=== PATIENT | male | born 1980 | race Caucasian/White ===

== ENCOUNTER 2017-01-16 23:22 | Emergency (ER) | payer SELFPAY ==
[~2017-01-16] VITALS: Ht 177.8 cm; Wt 95.4 kg
[~2017-01-16 23:22] MED LIST: OXYC1TAB3 PO; PENI-82 PO
[2017-01-16 23:34] VITALS: TEMP 36.8; Ht 177.8 cm; Wt 95.4 kg
[2017-01-16] MEDS ORDERED: AMOX500C3 PO (23:43)
[2017-01-17] MEDS ORDERED: OXYCODONE/ACETAMINOPHEN 5-325 TAB PO STA (00:06)
--- NOTE | 2017-01-17 00:06 | EMERGENCY ROOM VISIT NOTE ---
History Report prepared by Bianca: Kayla Oliveira Under the Supervision of: Dr. Mary Lou Dos Santos D.O. First contact with patient: 23:51 Chief Complaint: DENTAL PAIN Stated Complaint: ABSCESS ON LEFT CHEEK History of Present Illness The patient is a 36 year old male who presents to the Emergency Room with complaints of persistent dental pain that began one day ago. He currently rates his discomfort as a 9/10 in severity. The patient states that he has a history of a previous tooth abscess, but states that he hasn't had one in awhile. He states that he does see a dentist. The patient associates edema to the area with his symptoms today. He denies any fever, chills, sore throat, or cough. The patient denies any history of diabetes. He states that he has taken Advil at home for his discomfort without relief of his symptoms. Source of History: patient Onset: one day ago Position: teeth Symptom Intensity: 9/10 Timing: other (persistent) Associated Symptoms: No chills, No cough, No fevers, No sorethroat Note: Associated Symptoms: edema to mouth Review of Systems See HPI for pertinent positives & negatives. A total of 10 systems reviewed and were otherwise negative. Past Medical & Surgical Medical Problems: (1) Abscessed tooth Family History Cancer Social History Smoking Status: Current Every Day Smoker Alcohol Use: occasionally Marital Status: single Housing Status: lives with significant other Occupation Status: employed Current/Historical Medications Scheduled Amoxicillin (Amoxil), 500 MG PO BID Penicillin V Potassium (Veetids), 500 MG PO TID Scheduled PRN Oxycodone/Acetaminophen 5MG/325MG (Percocet 5MG/325MG), 1-2 TABLETS PO Q4H PRN for Pain Allergies Coded Allergies: No Known Allergies (Unverified , 01/16/17) Physical Exam Vital Signs Date Time Temp Pulse Resp B/P Pulse Ox O2 Delivery O2 Flow Rate FiO2 01/17/17 00:16 66 18 122/75 97 Room Air 01/16/17 23:34 36.8 68 16 124/82 97 Room Air Physical Exam HEENT: Head - normocephalic and atraumatic Pupils are equal, round, and reactive to light. Extraocular eye muscles are intact, and sclera are anicteric. Nose - moist nasal mucosa without discharge. Mouth - moist buccal mucosa. Oropharynx has significant gingival edema and erythema in left lower mouth, with abscess formation along the alveolar ridge and submental region on the left. and there is no tonsillar exudate or edema noted. Neck: Mild anterior cervical lymphadenopathy. Heart: Regular rate and rhythm. There is a normal S1 and S2 with no murmurs, clicks, or gallops appreciated. Lungs: Clear to auscultation bilaterally with no wheezes, rales, or rhonchi. Abdomen: Soft, completely nontender, nondistended, with good bowel sounds. There are no palpable pulsatile masses or hepatosplenomegaly. There is no guarding, rigidity, or rebound noted. Extremities: No evidence of cyanosis, clubbing, or edema. There are easily palpable peripheral pulses. Skin: warm and dry with good turgor and no rashes. Medical Decision & Procedures Medications Administered Medications (Trade) Dose Ordered Sig/Apollo Route Start Time Stop Time Status Last Admin Dose Admin Oxycodone/ Acetaminophen (Percocet 5-325mg Tab) 2 tab NOW STAT PO 01/17/17 00:06 01/17/17 00:08 DC 01/17/17 00:16 2 TAB Penicillin V Potassium (Veetids Tab) 500 mg NOW ONCE PO 01/17/17 00:15 01/17/17 00:16 DC 01/17/17 00:15 500 MG Procedure The patient was treated with Oxycodone/Acetaminophen 2 tab PO, Veetids Tab 500 mg PO. ED Course 2355: Past medical records reviewed. The patient was evaluated in room A12B. A complete history and physical exam was performed. I discussed all the exam findings with him and I discussed the treatment plan. He verbalized complete understanding and agreement. He is ready to go home once he receives his antibiotics. 0006: Ordered Oxycodone/Acetaminophen 2 tab PO. 0015: Ordered Veetids Tab 500 mg PO. Medical Decision The patient is a 36 year old male who presents to the ED with dental pain. Differential diagnosis includes dental abscess, dental fracture, Rc's angina On physical exam, the patient has an obvious left-sided lower dental abscess. There is no evidence of Rc angina. There is simply anterior cervical lymphadenopathy and abscess formation in the left lower mouth. The patient does have a dentist and will follow-up with him on Wednesday. Patient was given a prescription for penicillin. He was told to return to the emergency department if he developed more systemic symptoms. [place] Drug Monitoring Program Search Results: patient reviewed within database, no issues identified Impression Primary Impression: Dental abscess Scribe Attestation The scribe's documentation has been prepared under my direction and personally reviewed by me in its entirety. I confirm that the note above accurately reflects all work, treatment, procedures, and medical decision making performed by me. Departure Information Dispostion Home / Self-Care Prescriptions Oxycodone/Acetaminophen 5MG/325MG (PERCOCET 5MG/325MG) Tab 1-2 TABLETS PO Q4H Y for Pain, #20 TAB PAIN Prov: Mary Lou Dos aSntos D.O. 01/17/17 Penicillin V Potassium (Veetids) 500 Mg Tab 500 MG PO TID, #21 TAB Prov: Mary Lou Dos Santos D.O. 01/17/17 Referrals No Doctor, Assigned (PCP) Forms HOME CARE DOCUMENTATION FORM, IMPORTANT VISIT INFORMATION Patient Instructions Dental Abscess, My [facility] Additional Instructions Rest. Motrin - 800mg every 6 hours with food for pain. Percocet -1-2 tabs every 4 hours for more severe pain. Penicillin - 1 tab. every 8 hours Follow upo with your dentist on Wednesday
[2017-01-17] MEDS ORDERED: PENI-82 PO (00:10)
[2017-01-17] MEDS ORDERED: OXYC-57 PO (00:10)
[2017-01-17] MEDS ORDERED: PENICILLIN V POTASSIUM 250 MG TAB PO ONE (00:15)
[2017-01-17 00:16] VITALS: BP 122/75; PULSE 66; O2SAT 97
== END 2017-01-17 00:20 | disposition home or self-care (01) ==
LOC: C.EDB 23:23 → C.EDA 01-17 00:20
DX: K04.7 Periapical abscess without sinus (principal); F17.200 Nicotine dependence, unspecified, uncomplicated